=== PATIENT | female | born 1955 | race Caucasian/White ===

== ENCOUNTER 2018-10-07 21:44 | Inpatient (IN) | payer MEDICAID ==
[~2018-10-07] VITALS: Ht 165.1 cm; Wt 45.8 kg
[2018-10-07] MEDS ORDERED: DOCUSATE 100 MG CAPSULE PO PRN (22:00)
[2018-10-07] MEDS ORDERED: ACETAMINOPHEN 325 MG TABLET PO PRN (22:00)
[2018-10-07] MEDS ORDERED: POLYETHYLENE GLYCOL 17 GM PACKET PO PRN (22:00)
[2018-10-07] MEDS ORDERED: BISACODYL 10 MG SUPP PR PRN (22:00)
[2018-10-07 22:18] VITALS: BP 135/77
[2018-10-07 22:22] VITALS: BP 135/77
[2018-10-07] MEDS ORDERED: PLEASE ENTER HEIGHT AND WEIGHT MC SCH (22:30)
[2018-10-07] MEDS ORDERED: QUET100T4 PO (23:18)
[2018-10-08] MEDS: LORazepam 1MG TABLET PO PRN (00:11)
[2018-10-08 06:12] LABS: BASOPHILS # (AUTO) 0.03 x10^3/uL (0-0.1); BASOPHILS % (AUTO) 0 % (0-1); EOSINOPHILS # (AUTO) 0.07 x10^3/uL (0-0.4); EOSINOPHILS % (AUTO) 1 % (1-7); LYMPHOCYTES # (AUTO) 1.98 x10^3/uL (1-3.4); LYMPHOCYTES % (AUTO) 30 % (22-44); MD NO; MEAN CORPUSCULAR HEMOGLOBIN 31.9 pg (27.0-34.8); MEAN CORPUSCULAR HGB CONC 34.1 g/dL (32.4-35.8); MEAN CORPUSCULAR VOLUME 93.6 fL (80-100); MONOCYTES # (AUTO) 0.48 x10^3/uL (0.2-0.8); MONOCYTES % (AUTO) 7 % (2-9); NEUTROPHILS # (AUTO) 4.03 x10^3/uL (1.8-6.8); NEUTROPHILS % (AUTO) 61 % (42-75); PLATELET COUNT 369 x10^3/uL (130-400)
[2018-10-08 06:19] LABS: ALBUMIN 3.7 g/dL (3.4-5.0); ANION GAP 6 mmol/L (5-15); CALCIUM 8.7 mg/dL (8.5-10.1); CHLORIDE 108 mmol/L (98-107)
[2018-10-08 07:11] LABS: ALANINE AMINOTRANSFERASE 18 U/L (12-78); ALKALINE PHOSPHATASE 117 U/L (45-117); BILIRUBIN,TOTAL 0.5 mg/dL (0.2-1.0); CHOL/HDL RATIO 3.4; CHOLESTEROL, TOTAL 215 mg/dL (140-239); CREATININE 0.73 mg/dL (0.55-1.02); FREE T4 (FREE THYROXINE) 0.75 ng/dL (0.76-1.46); HDL CHOL % 30 % (28-40); HDL CHOLESTEROL (DIRECT) 64 mg/dL (40-60); LDL CHOLESTEROL,CALCULATED 137 mg/dL (54-169); LDL/HDL RATIO 2.1 (0.5-3.0); TOTAL PROTEIN 6.9 g/dL (6.4-8.2); TRIGLYCERIDES 70 mg/dL (50-200); VLDL CHOLESTEROL 14 mg/dL (0-25)
[2018-10-08 07:45] VITALS: BP 126/78
[2018-10-08 10:33] LABS: MICROSCOPIC AUTO
[2018-10-08 10:35] LABS: CULTURE INDICATED? YES
[2018-10-08] MEDS: LEVOFLOXACIN 250 MG TABLET PO SCH (11:16)
[2018-10-08] MEDS: QUETIAPINE 100MG TABLET PO SCH ×2 (13:31→20:53)
[2018-10-08 19:50] VITALS: BP 113/79
[2018-10-08] MEDS: DIVALPROEX 500 MG TAB.ER.24H PO SCH (20:53)
[2018-10-09 07:23] VITALS: BP 114/84
[2018-10-09] MEDS: QUETIAPINE 100MG TABLET PO SCH ×2 (08:39→20:43)
[2018-10-09] MEDS: LORazepam 1MG TABLET PO PRN (10:35)
[2018-10-09] MEDS: LEVOFLOXACIN 250 MG TABLET PO SCH (11:00)
[2018-10-09 19:11] VITALS: BP 109/66
[2018-10-09] MEDS: DIVALPROEX 500 MG TAB.ER.24H PO SCH (20:43)
[2018-10-10 07:10] VITALS: BP 110/73
[2018-10-10] MEDS: QUETIAPINE 100MG TABLET PO SCH ×2 (08:15→21:42)
[2018-10-10] MEDS: LORazepam 1MG TABLET PO PRN (08:15)
[2018-10-10] MEDS: LEVOFLOXACIN 250 MG TABLET PO SCH (10:50)
[2018-10-10 19:40] VITALS: BP 98/73
[2018-10-10] MEDS: DIVALPROEX 500 MG TAB.ER.24H PO SCH (21:41)
[2018-10-10] MEDS: DIPHENHYDRAMINE 50 MG CAPSULE PO PRN (21:45)
[2018-10-11 07:27] VITALS: BP 103/78
[2018-10-11] MEDS: QUETIAPINE 100MG TABLET PO SCH ×2 (08:22→20:43)
[2018-10-11] MEDS: LEVOFLOXACIN 250 MG TABLET PO SCH (11:44)
[2018-10-11 19:45] VITALS: BP 128/73
[2018-10-11] MEDS: DIVALPROEX 500 MG TAB.ER.24H PO SCH (20:43)
[2018-10-12 07:54] VITALS: BP 102/73
[2018-10-12] MEDS: QUETIAPINE 100MG TABLET PO SCH ×2 (08:27→21:12)
[2018-10-12 20:00] VITALS: BP 92/67
[2018-10-12] MEDS: DIVALPROEX 500 MG TAB.ER.24H PO SCH (21:12)
[2018-10-12] MEDS: DIPHENHYDRAMINE 50 MG CAPSULE PO PRN (22:08)
[2018-10-13 07:46] VITALS: BP 100/69
[2018-10-13] MEDS: QUETIAPINE 100MG TABLET PO SCH ×2 (09:03→20:17)
[2018-10-13 20:07] VITALS: BP 111/76
[2018-10-13] MEDS: DIVALPROEX 500 MG TAB.ER.24H PO SCH (20:17)
[2018-10-13] MEDS: DIPHENHYDRAMINE 50 MG CAPSULE PO PRN (22:02)
[2018-10-14 07:33] VITALS: BP 116/80
[2018-10-14] MEDS: QUETIAPINE 100MG TABLET PO SCH ×2 (09:17→21:45)
[2018-10-14] MEDS ORDERED: LOPERAMIDE 2 MG CAPSULE PO PRN (15:00)
[2018-10-14 19:48] VITALS: BP 118/83
[2018-10-14] MEDS: DIVALPROEX 500 MG TAB.ER.24H PO SCH (21:45)
[2018-10-14] MEDS: DIPHENHYDRAMINE 50 MG CAPSULE PO PRN (23:22)
[2018-10-15 07:30] VITALS: BP 107/79
[2018-10-15] MEDS: QUETIAPINE 100MG TABLET PO SCH ×2 (08:38→20:34)
[2018-10-15] MEDS: LORazepam 1MG TABLET PO PRN (17:08)
[2018-10-15] MEDS: DIVALPROEX 500 MG TAB.ER.24H PO SCH (20:33)
[2018-10-15] MEDS: DIPHENHYDRAMINE 50 MG CAPSULE PO PRN (20:37)
[2018-10-15 20:41] VITALS: BP 127/87
[2018-10-16 07:30] VITALS: BP 94/57
[2018-10-16] MEDS: QUETIAPINE 100MG TABLET PO SCH ×2 (08:18→20:32)
[2018-10-16] MEDS: LORazepam 1MG TABLET PO PRN (14:38)
[2018-10-16 19:32] VITALS: BP 102/68
[2018-10-16] MEDS: DIVALPROEX 500 MG TAB.ER.24H PO SCH (20:32)
[2018-10-16] MEDS: DIPHENHYDRAMINE 50 MG CAPSULE PO PRN (20:36)
[2018-10-17 07:42] VITALS: BP_SYST 115; BP_SYST 99; BP_DIAS 64; BP_DIAS 83
[2018-10-17] MEDS: QUETIAPINE 100MG TABLET PO SCH ×2 (08:29→21:46)
[2018-10-17] MEDS: LORazepam 1MG TABLET PO PRN (17:58)
[2018-10-17 20:12] VITALS: BP 94/67
[2018-10-17] MEDS: DIVALPROEX 500 MG TAB.ER.24H PO SCH (21:46)
[2018-10-17] MEDS: DIPHENHYDRAMINE 50 MG CAPSULE PO PRN (22:15)
[2018-10-18 07:30] VITALS: BP 94/69
[2018-10-18] MEDS: QUETIAPINE 100MG TABLET PO SCH ×2 (08:38→21:23)
[2018-10-18] MEDS: LORazepam 1MG TABLET PO PRN (14:55)
[2018-10-18] MEDS ORDERED: DIVA500T4 PO (17:07)
[2018-10-18] MEDS ORDERED: DIPH50CA PO (17:07)
[2018-10-18] MEDS ORDERED: QUET100T PO ×2 (17:07)
[2018-10-18 19:50] VITALS: BP 96/71
[2018-10-18] MEDS: DIVALPROEX 500 MG TAB.ER.24H PO SCH (21:23)
[2018-10-18] MEDS: DIPHENHYDRAMINE 50 MG CAPSULE PO PRN (21:59)
[2018-10-19 07:08] VITALS: BP 102/70
[2018-10-19] MEDS: QUETIAPINE 100MG TABLET PO SCH (08:25)
[2018-10-19] MEDS ORDERED: LOPERAMIDE 2 MG CAPSULE PO ONE (10:00)
[2018-10-19] MEDS: LORazepam 1MG TABLET PO PRN (10:41)
== END 2018-10-19 15:30 | disposition home or self-care (01) | DRG 885 ==
LOC: 3E 21:44
PROVIDERS: ADMIT Counselor Mental Health; ATTEND Counselor Mental Health
DX: F31.2 Bipolar disorder, current episode manic severe with psychotic features (principal); G47.00 Insomnia, unspecified; N30.90 Cystitis, unspecified without hematuria; F41.1 Generalized anxiety disorder; Z79.899 Other long term (current) drug therapy; Z80.41 Family history of malignant neoplasm of ovary; Z81.8 Family history of other mental and behavioral disorders
CPT/HCPCS: 36415; 80053; 80061; 81001; 82140; 82607; 84146; 84439; 84443; 85025; 86592; 87086; 93005

== ENCOUNTER 2020-10-24 13:22 | Outpatient (CLI) | payer MEDICAID, OTHER ==
[~2020-10-24 13:22] MED LIST: DIPH50CA PO; DIVA500T4 PO; QUET100T PO; QUET100T4 PO
[2020-10-24] MEDS ORDERED: [UNRECOGNIZED DRUG - OTHER] PO (14:07)
[2020-10-24] MEDS ORDERED: OMEP-110 PO (14:07)
[2020-10-24] MEDS ORDERED: OLAN15TA9 PO (14:07)
[2020-10-24] MEDS ORDERED: ALPR1TAB5 PO (14:07)
[2020-10-24] MEDS ORDERED: FERROUS SULFATE PO (14:07)
[2020-10-24] MEDS ORDERED: DIPH1TAB6 PO (14:07)
[2020-10-24] MEDS ORDERED: ONDA4TAB13 SL (14:07)
[2020-10-24] MEDS ORDERED: CHOL10003 PO (14:07)
[2020-10-24 15:19] LABS: BASOPHILS % (AUTO) 1 % (0-1); EOSINOPHILS % (AUTO) 1 % (1-7); LYMPHOCYTES % (AUTO) 28 % (22-44); MEAN CORPUSCULAR HEMOGLOBIN 23.5 pg (27.0-34.8); MEAN CORPUSCULAR HGB CONC 31.3 g/dL (32.4-35.8); MEAN PLATELET VOLUME 6.9 fL (7.4-10.4); MONOCYTES % (AUTO) 8 % (2-9); NEUTROPHILS % (AUTO) 62 % (42-75); PLATELET COUNT 363 x10^3/uL (130-400); RED BLOOD COUNT 5.03 x10^6/uL (3.82-5.3); RED CELL DISTRIBUTION WIDTH 26.9 % (9.6-15.2)
[2020-10-24 15:27] LABS: MD NO
== END 2020-10-24 23:59 | disposition home or self-care (01) ==
LOC: STAR 13:22
PROVIDERS: ATTEND Thoracic Surgery (Cardiothoracic Vascular Surgery)
DX: Z01.818 Encounter for other preprocedural examination (principal); K44.9 Diaphragmatic hernia without obstruction or gangrene; Z20.822 Contact with and (suspected) exposure to COVID-19
CPT/HCPCS: 36415; 85025; 93005; U0003

== ENCOUNTER 2020-10-29 09:38 | Observation (INO) | payer MEDICARE, MEDICAID ==
[~2020-10-29] VITALS: Ht 165.1 cm; Wt 86.7 kg
[~2020-10-29 09:38] MED LIST changes: +ALPR1TAB5 PO; +BUPIVACAINE/PF 0.5% ONE; +CHOL10003 PO; +DIPH1TAB6 PO; +EPINEPHRINE 1 MG/ML, 1ML ONE; +FERROUS SULFATE PO; +OLAN15TA9 PO; +OMEP-110 PO; +ONDA4TAB13 SL; +[UNRECOGNIZED DRUG - OTHER] PO
[2020-10-29] MEDS ORDERED: LACTATED RINGERS 1,000 ML IV SCH (10:00)
[2020-10-29] MEDS ORDERED: CHLORHEXIDINE 15 ML UDC PO ONE (10:00)
[2020-10-29] MEDS ORDERED: CHLORHEXIDINE 15 ML UDC ONE (10:01)
[2020-10-29] MEDS ORDERED: MIDAZOLAM 1 MG/ML, 2ML ONE (11:51)
[2020-10-29] MEDS ORDERED: FENTANYL PF 250 MCG/5ML ONE (11:52)
[2020-10-29] MEDS ORDERED: SUCCINYLCHOLINE 20 MG/ML, 10ML ONE (11:53)
[2020-10-29] MEDS ORDERED: ROCURONIUM 10MG/ML,5ML ONE (11:53)
[2020-10-29] MEDS ORDERED: DEXAMETHASONE 4 MG/ML, 5ML ONE (11:54)
[2020-10-29] MEDS ORDERED: PROPOFOL 10 MG/ML, 20ML ONE ×2 (11:54→12:29)
[2020-10-29] MEDS ORDERED: CEFAZOLIN 1,000 MG ONE (12:16)
[2020-10-29] MEDS ORDERED: BUPIVACAINE/PF-EPI 0.5% 1:200K INFIL ONE (12:29)
[2020-10-29] MEDS ORDERED: FENTANYL PF 100 MCG/2ML ONE ×3 (12:40→13:53)
[2020-10-29] MEDS ORDERED: GLYCOPYRROLATE 0.2MG/1ML, 5ML ONE (13:23)
[2020-10-29] MEDS ORDERED: NEOSTIGMINE 1 MG/ML, 10ML ONE (13:23)
[2020-10-29] MEDS ORDERED: ONDANSETRON 2MG/ML, 2ML ONE ×3 (13:24→13:48)
[2020-10-29] MEDS ORDERED: HYDR15SO3 PO (13:56)
[2020-10-29] MEDS ORDERED: LABETALOL 5MG/ML, 20ML IV PRN (14:00)
[2020-10-29] MEDS ORDERED: hydrALAzine 20 MG/ML, 1ML IV PRN ×2 (14:00)
[2020-10-29] MEDS ORDERED: HYDROmorphone 1 MG/ML, 1ML INJ IVPush PRN (14:00)
[2020-10-29] MEDS ORDERED: HYDROcodone/APAP 7.5-325MG/15ML UDC PO PRN (14:00)
[2020-10-29] MEDS ORDERED: ONDANSETRON 2MG/ML, 2ML IVPush PRN ×2 (14:00)
[2020-10-29] MEDS ORDERED: LORazepam 2 MG/ML, 1ML IV PRN (14:00)
[2020-10-29] MEDS ORDERED: MIDAZOLAM 1 MG/ML, 2ML IV PRN (14:00)
[2020-10-29] MEDS ORDERED: FENTANYL PF 100 MCG/2ML IV PRN (14:00)
[2020-10-29] MEDS ORDERED: ACETAMINOPHEN 325 MG TABLET PO PRN (14:00)
[2020-10-29] MEDS ORDERED: PROMETHAZINE 25 MG/ML, 1ML IM PRN (14:00)
[2020-10-29] MEDS ORDERED: DIAZEPAM 5 MG/ML, 2ML IVPush PRN (14:00)
[2020-10-29] MEDS ORDERED: EPHEDRINE 50 MG/ML, 1ML IVPush PRN (14:00)
[2020-10-29] MEDS ORDERED: MEPERIDINE/PF 25MG/0.5ML IVPush PRN (14:00)
[2020-10-29] MEDS ORDERED: OXYcodone 5 MG/5 ML ORAL.SOL UDC PO PRN (14:00)
[2020-10-29] MEDS ORDERED: METHOCARBAMOL 1,000 MG in DEXTROSE 5% 100 ML IV ONE (14:00)
[2020-10-29] MEDS ORDERED: PROMETHAZINE 12.5 MG SUPP PR PRN ×2 (14:00)
[2020-10-29] MEDS ORDERED: ENALAPRILAT 1.25 MG/ML, 2ML IV PRN (14:00)
[2020-10-29] MEDS ORDERED: ALBUTEROL SULFATE 2.5 MG/3 ML NPPB PRN (14:00)
[2020-10-29] MEDS ORDERED: DIPHENHYDRAMINE 50 MG/ML, 1ML IVPush PRN ×2 (14:00)
[2020-10-29] MEDS ORDERED: PROMETHAZINE 25 MG/ML, 1ML IVPush PRN (14:00)
[2020-10-29] MEDS ORDERED: DIPHENHYDRAMINE 50 MG/ML, 1ML IV PRN (14:00)
[2020-10-29] MEDS ORDERED: morphine SULFATE 10 MG/ML, 1ML IV PRN (14:00)
[2020-10-29] MEDS ORDERED: PROMETHAZINE 25 MG/ML, 1ML ONE (14:11)
[2020-10-29] MEDS: FAMOTIDINE 20 MG/2 ML IV SCH (14:31)
[2020-10-29] MEDS ORDERED: ENOXAPARIN 40 MG/0.4 ML SQ SCH (15:30)
[2020-10-29] MEDS: KETOROLAC 30 MG/1 ML IV PRN ×2 (17:19→23:17)
[2020-10-29 19:07] VITALS: BP 134/84
[2020-10-29 19:09] VITALS: BP 134/84
[2020-10-29] MEDS: LACTATED RINGERS 1,000 ML IV SCH (23:17)
[2020-10-30 00:03] VITALS: BP 125/78
[2020-10-30] MEDS: FAMOTIDINE 20 MG/2 ML IV SCH (02:01)
[2020-10-30 04:19] VITALS: BP 122/79
[2020-10-30] MEDS: KETOROLAC 30 MG/1 ML IV PRN (05:22)
[2020-10-30 07:05] VITALS: BP 119/77
[2020-10-30] MEDS: LACTATED RINGERS 1,000 ML IV SCH (10:00)
== END 2020-10-30 13:10 | disposition home or self-care (01) ==
LOC: OUT 09:38 → 4NE 15:12 → OUT 22:52 → DCLOUNGE 10-30 13:02
PROVIDERS: ADMIT Thoracic Surgery (Cardiothoracic Vascular Surgery); ATTEND Thoracic Surgery (Cardiothoracic Vascular Surgery)
DX: K44.9 Diaphragmatic hernia without obstruction or gangrene (principal); K21.9 Gastro-esophageal reflux disease without esophagitis; Z79.899 Other long term (current) drug therapy
CPT/HCPCS: 43282; 96361; 96374; 96375; 96376; C1781; G0378; J0171; J0330; J0690; J1100; J1200; J1885; J2250; J2405; J2704; J2710; J2800; J3010; J7120; S0020

== ENCOUNTER 2021-03-24 19:58 | Inpatient (IN) | payer MEDICARE, MEDICAID ==
[~2021-03-24] VITALS: Ht 165.1 cm; Wt 54.5 kg
[~2021-03-24 19:58] MED LIST changes: -ALPR1TAB5 PO; +ALPR1TAB9 PO; -BUPIVACAINE/PF 0.5% ONE; -EPINEPHRINE 1 MG/ML, 1ML ONE; +HYDR15SO3 PO; +OLAN15TA14 PO; -OLAN15TA9 PO; -QUET100T PO; +QUET100T2 PO
--- NOTE | 2021-03-24 20:32 | NUR ---
yaritza from home for GLF at 0300 this am. -LOC during fall but per pt 5-6 syncopal episodes since. pt placed in c-collar [employer] for midline cervical tenderness. 50 Fentanyl and 4 Zofran admin [employer]. HENRRY Lomeli at bedside for eval
[2021-03-24 20:49] LABS: BASOPHILS % (AUTO) 1 % (0-1); EOSINOPHILS % (AUTO) 0 % (1-7); LYMPHOCYTES % (AUTO) 13 % (22-44); MEAN CORPUSCULAR HEMOGLOBIN 29.9 pg (27.0-34.8); MEAN CORPUSCULAR HGB CONC 33.5 g/dL (32.4-35.8); MEAN PLATELET VOLUME 6.4 fL (7.4-10.4); MONOCYTES % (AUTO) 8 % (2-9); NEUTROPHILS % (AUTO) 79 % (42-75); PLATELET COUNT 303 x10^3/uL (130-400); RED BLOOD COUNT 4.42 x10^6/uL (3.82-5.3); RED CELL DISTRIBUTION WIDTH 21.2 % (9.6-15.2)
[2021-03-24 20:55] LABS: ANION GAP 7 mmol/L (5-15); CALCIUM 8.1 mg/dL (8.5-10.1); CHLORIDE 112 mmol/L (98-107); CREATININE 0.56 mg/dL (0.55-1.02)
--- NOTE | 2021-03-24 21:12 | NUR ---
pt to ct at this time
--- NOTE | 2021-03-24 21:39 | NUR ---
pt back from ct, vss, hyacinthn. awaiting results and dispo
--- NOTE | 2021-03-24 22:10 | NUR ---
BREAK RN: C COLLAR REMOVED AT THIS TIME, PERMITTED PER DR. GARRIDO.
[2021-03-24] MEDS ORDERED: METHOCARBAMOL 750 MG TABLET ONE (22:28)
[2021-03-24] MEDS ORDERED: OXYcodone/APAP 5/325MG TABLET ONE (22:28)
[2021-03-24] MEDS ORDERED: OXYcodone/APAP 5/325MG TABLET PO ONE (22:30)
[2021-03-24] MEDS ORDERED: METHOCARBAMOL 750 MG TABLET PO ONE (22:30)
--- NOTE | 2021-03-24 23:35 | NUR ---
attempt to road test pt mildly unsuccessful, Law aware. orders for CT received
--- NOTE | 2021-03-25 01:07 | NUR ---
pt unable to safely discharge to do inability to walk on own, plan to admit
--- NOTE | 2021-03-25 01:32 | NUR ---
[facility] at bedside for eval
--- NOTE | 2021-03-25 01:41 | NUR ---
REPORT CALLED TO CAIN BENOIT
[2021-03-25] MEDS ORDERED: IBUPROFEN 600 MG TABLET PO PRN (02:00)
[2021-03-25] MEDS ORDERED: ENALAPRILAT 1.25 MG/ML, 2ML IVPush PRN (02:00)
[2021-03-25] MEDS ORDERED: OXYcodone/APAP 5/325MG TABLET ONE ×3 (03:37→18:08)
[2021-03-25] MEDS: OXYcodone/APAP 5/325MG TABLET PO PRN ×3 (03:55→18:12)
--- NOTE | 2021-03-25 04:48 | NUR ---
pt placed on hospital bed, states no other needs at this time. pt on all monitors
--- NOTE | 2021-03-25 07:01 | NUR ---
REPORT GIVEN TO CY HOFF. PT SLEEPING IN BED, RESP EVEN/UNLABORED. ON THE MONITORS
[2021-03-25] MEDS ORDERED: SENNA/DOCUSATE TABLET ONE (08:09)
[2021-03-25] MEDS: SENNA/DOCUSATE TABLET PO SCH (08:15)
--- NOTE | 2021-03-25 08:15 | NUR ---
Meal provided, pt resting in bed, call light in reach
[2021-03-25 14:04] VITALS: BP 116/74
[2021-03-25 20:26] VITALS: BP 104/73
[2021-03-26] MEDS: OXYcodone/APAP 5/325MG TABLET PO PRN ×4 (01:09→21:11)
[2021-03-26] MEDS: ONDANSETRON 2MG/ML, 2ML IVPush PRN ×2 (01:16→13:58)
[2021-03-26 02:01] VITALS: BP 109/68
[2021-03-26 07:32] VITALS: BP 108/72
[2021-03-26] MEDS: FERROUS SULFATE 325 MG TABLET PO SCH (08:47)
[2021-03-26] MEDS: CYCLOBENZAPRINE 10 MG TABLET PO PRN ×2 (08:47→17:41)
[2021-03-26] MEDS: SENNA/DOCUSATE TABLET PO SCH (08:51)
[2021-03-26 14:12] VITALS: BP 91/59
[2021-03-26] MEDS: morphine SULFATE 10 MG/ML, 1ML IVPush PRN ×3 (17:44→21:59)
[2021-03-26 19:08] VITALS: BP 102/69
[2021-03-26] MEDS: OLANZAPINE 5 MG TABLET PO SCH (20:53)
[2021-03-27 01:07] VITALS: BP 85/56
[2021-03-27 02:28] VITALS: BP 92/61
[2021-03-27] MEDS: morphine SULFATE 10 MG/ML, 1ML IVPush PRN (05:00)
[2021-03-27 06:57] VITALS: BP 88/58
[2021-03-27] MEDS: FERROUS SULFATE 325 MG TABLET PO SCH (08:23)
[2021-03-27] MEDS: SENNA/DOCUSATE TABLET PO SCH ×2 (08:23→11:16)
[2021-03-27] MEDS: OXYcodone/APAP 5/325MG TABLET PO PRN ×2 (08:33→16:52)
[2021-03-27] MEDS: MORPHINE SULFATE 4 MG/ML, 1ML IVPush PRN (11:15)
[2021-03-27 13:18] VITALS: BP 94/63
[2021-03-27 19:23] VITALS: BP 114/80
[2021-03-27] MEDS: OLANZAPINE 5 MG TABLET PO SCH (21:15)
[2021-03-27] MEDS: ACETAMINOPHEN 325 MG TABLET PO PRN (23:20)
[2021-03-27] MEDS: CYCLOBENZAPRINE 10 MG TABLET PO PRN (23:20)
[2021-03-28 00:59] VITALS: BP 100/69
[2021-03-28] MEDS: MORPHINE SULFATE 4 MG/ML, 1ML IVPush PRN ×2 (05:36→13:05)
[2021-03-28 07:25] VITALS: BP 106/74
[2021-03-28] MEDS: ACETAMINOPHEN 325 MG TABLET PO PRN ×2 (08:56→17:19)
[2021-03-28] MEDS: CYCLOBENZAPRINE 10 MG TABLET PO PRN ×2 (08:56→17:19)
[2021-03-28] MEDS: SENNA/DOCUSATE TABLET PO SCH ×2 (08:56→09:00)
[2021-03-28] MEDS: FERROUS SULFATE 325 MG TABLET PO SCH (08:57)
[2021-03-28 12:54] VITALS: BP 92/66
[2021-03-28 20:22] VITALS: BP 99/69
[2021-03-28] MEDS: OLANZAPINE 5 MG TABLET PO SCH (20:30)
[2021-03-28] MEDS: OXYcodone/APAP 5/325MG TABLET PO PRN (20:42)
[2021-03-28] MEDS: METHOCARBAMOL 500 MG TABLET PO PRN (20:43)
[2021-03-29 02:38] VITALS: BP 107/71
[2021-03-29] MEDS: POLYETHYLENE GLYCOL 17 GM PACKET NG PRN (02:42)
[2021-03-29] MEDS: OXYcodone/APAP 5/325MG TABLET PO PRN ×3 (02:43→19:38)
[2021-03-29 07:05] VITALS: BP 104/71
[2021-03-29] MEDS: SENNA/DOCUSATE TABLET PO SCH ×3 (09:00→21:42)
[2021-03-29] MEDS: FERROUS SULFATE 325 MG TABLET PO SCH (10:14)
[2021-03-29 14:47] VITALS: BP 111/79
[2021-03-29 20:20] VITALS: BP 101/68
[2021-03-29] MEDS: OLANZAPINE 5 MG TABLET PO SCH (21:33)
[2021-03-30] MEDS: OXYcodone/APAP 5/325MG TABLET PO PRN ×3 (00:16→20:52)
[2021-03-30 02:55] VITALS: BP 103/72
[2021-03-30 09:06] VITALS: BP 93/66
[2021-03-30] MEDS: FERROUS SULFATE 325 MG TABLET PO SCH (09:23)
[2021-03-30] MEDS: SENNA/DOCUSATE TABLET PO SCH (09:24)
[2021-03-30 14:51] VITALS: BP 114/82
[2021-03-30 19:53] VITALS: BP 119/63
[2021-03-30] MEDS: OLANZAPINE 5 MG TABLET PO SCH (20:36)
[2021-03-31] MEDS: METHOCARBAMOL 500 MG TABLET PO PRN (00:04)
[2021-03-31 03:59] VITALS: BP 95/58
[2021-03-31 07:48] VITALS: BP 140/99
[2021-03-31] MEDS: OXYcodone/APAP 5/325MG TABLET PO PRN ×3 (07:53→16:44)
[2021-03-31] MEDS: FERROUS SULFATE 325 MG TABLET PO SCH (07:53)
[2021-03-31] MEDS: SENNA/DOCUSATE TABLET PO SCH ×2 (07:54→08:01)
[2021-03-31] MEDS: POLYETHYLENE GLYCOL 17 GM PACKET NG PRN (07:54)
[2021-03-31] MEDS: ONDANSETRON 2MG/ML, 2ML IVPush PRN (09:00)
[2021-03-31] MEDS ORDERED: OXYC1TAB12 PO (11:16)
[2021-03-31] MEDS ORDERED: SENN-211 PO (11:16)
[2021-03-31] MEDS ORDERED: POLY17PO5 NG (11:16)
[2021-03-31] MEDS ORDERED: METH-639 PO (11:16)
[2021-03-31 13:22] VITALS: BP 118/83
== END 2021-03-31 16:53 | DRG 552 ==
LOC: ED 21:43 → OBSVTOIN 03-25 01:10 → EDIP 03-25 01:10 → INTOOBSV 03-25 01:10 → 4EST 03-25 21:10 → 4NW 03-26 22:33
PROVIDERS: ADMIT Family Medicine; ATTEND Family Medicine
DX: S22.079A Unspecified fracture of T9-T10 vertebra, initial encounter for closed fracture (principal); E46 Unspecified protein-calorie malnutrition; E87.6 Hypokalemia; R55 Syncope and collapse; K21.9 Gastro-esophageal reflux disease without esophagitis; F31.9 Bipolar disorder, unspecified; M48.04 Spinal stenosis, thoracic region; R26.89 Other abnormalities of gait and mobility; W18.39XA Other fall on same level, initial encounter; Z80.41 Family history of malignant neoplasm of ovary; Y93.89 Activity, other specified; Y92.89 Other specified places as the place of occurrence of the external cause; Y99.8 Other external cause status; Z68.20 Body mass index [BMI] 20.0-20.9, adult
CPT/HCPCS: 36415; 70450; 72110; 72125; 72131; 72146; 72148; 80048; 82040; 84443; 85025; 93005; G0378; J2405; J2270